=== PATIENT | male | born 1975 | race Caucasian/White ===

== ENCOUNTER 2022-05-03 06:27 | Day surgery (SDC) | payer OTHER, SELFPAY ==
[2022-03-12 10:33] VITALS: BMI 27.8
[2022-04-21 07:56] VITALS: BMI 28.9
--- NOTE | 2022-05-03 07:05 | WPDANESEPPF ---
Anes - Initial Pre Proc Eval Procedure: Operation Date: 05/03/22 08:30 Proposed Procedures p Screening Colonoscopy - Tom Durbin MD Date/Time: 05/03/22 07:05 Surgeon: Tom Durbin MD Pre Op Diagnosis: Neoplasm Screening Patient Data Age: 46 Gender: M Height: 1.85 m Weight: 99.5 kg Allergies Allergy/AdvReac Type Severity Reaction Status Date / Time iodine Allergy Mild Itching Verified 05/03/22 07:20 bupropion AdvReac bad Verified 05/03/22 07:20 nightmares Home Medications Medication Instructions Recorded Confirmed Type loratadine 10 mg tablet (Claritin) 10 mg PO DAILY 12/19/19 05/03/22 History sodium,potassium,mag sulfates 17.5 See Rx Instructions PO .COMPLEX 03/12/22 05/03/22 Rx gram-3.13 gram-1.6 gram oral soln #354 mL (Suprep Bowel Prep Kit) multivit with minerals-iron 18 1 tablet PO DAILY 04/21/22 05/03/22 History mg-folic ac 400 mcg-vit K 25 mcg tablet (Adults Multivitamin) vitamin B complex (B 1 tablet PO DAILY 04/21/22 05/03/22 History Complex-Vitamin B12 tablet) Patient hx anesthesia problems: none Family hx anesthesia problems: none Results Review: All pre-operative results and documents have been reviewed as part of the pre-operative evaluation. [facility] Past Medical History Medical History Chronic bilateral low back pain Vitamin B12 deficiency Surgical History Surgical History History of carpal tunnel release History of pilonidal cyst History of tonsillectomy Family History Family History Mother Family history of thyroid disease Hypertension Father Family history of schizophrenia Acute myocardial infarction Sibling Family history of migraine headaches Other Family history of cardiovascular disease Social History Social History Smoking packs per day: 1 Smoking cigarettes per day: 20.0 Years smoked: 25 Smoking pack-years: 25.00 Smoking status: Former smoker Tobacco type: cigarettes Second hand tobacco smoke exposure: No Smoking end date: 04/04/18 Alcohol intake: former Substance use: unknown Substance use type: does not use Living arrangements: with family Occupation/Education: occupation Gender identity (if verbalized by the patient): Male Spiritual care concerns: No Anes - Eval Final PreProcedure Day of Procedure 05/03/22 07:05 Patient weight: overweight Heart: regular rate and rhythm Lungs: clear to auscultation Airway: Mallampati scale class II Neurological: alert and oriented Last oral intake: >/= 8 hours ASA classification: II Emergent: no Anesthetic plan: proceed Anesthesia type and monitoring: general GIVS and standard monitoring Results Review: All pre-operative results and documents have been reviewed as part of the pre-operative evaluation. Informed Consent: The patient's anesthetic plan and its attendant risks and benefits were discussed with the patient/family/POA. Questions were solicited and answers provided to the satisfaction of the patient/family/POA.
[2022-05-03 07:15] VITALS: BP 118/80; PULSE 52; RESP 16; TEMP 36.4; O2SAT 100
[2022-05-03] MEDS: LACTATED RINGERS 1,000 ML 150 ML IV CONT (07:27)
--- NOTE | 2022-05-03 07:32 | PM.HPGS ---
History of Present Illness History of Present Illness Consent: Risks, benefits, and alternatives have been discussed and questions answered. Patient agrees to proceed with procedure. Chief complaint: Neoplasm Screening Narrative: Ross Wyman is a 46 year old male Presents for screening colonoscopy. Patient's current weight appetite and bowel movements are normal. Patient denies abdominal pain. He has had no bleeding. He has had irregular bowel habits in the past attributed to irritable bowel syndrome. Review of Systems Review of Systems: Reviews systems noncontributory. [facility] Past Medical History Medical History Chronic bilateral low back pain Vitamin B12 deficiency Surgical History Surgical History History of carpal tunnel release History of pilonidal cyst History of tonsillectomy Family History Family History Mother Family history of thyroid disease Hypertension Father Family history of schizophrenia Acute myocardial infarction Sibling Family history of migraine headaches Other Family history of cardiovascular disease Social History Social History Smoking packs per day: 1 Smoking cigarettes per day: 20.0 Years smoked: 25 Smoking pack-years: 25.00 Smoking status: Former smoker Tobacco type: cigarettes Second hand tobacco smoke exposure: No Smoking end date: 04/04/18 Alcohol intake: former Substance use: unknown Substance use type: does not use Living arrangements: with family Occupation/Education: occupation Gender identity (if verbalized by the patient): Male Spiritual care concerns: No Meds Home Medications and Allergies Home Medications Medication Instructions Recorded Confirmed Type loratadine 10 mg tablet (Claritin) 10 mg PO DAILY 12/19/19 05/03/22 History sodium,potassium,mag sulfates 17.5 See Rx Instructions PO .COMPLEX 03/12/22 05/03/22 Rx gram-3.13 gram-1.6 gram oral soln #354 mL (Suprep Bowel Prep Kit) multivit with minerals-iron 18 1 tablet PO DAILY 04/21/22 05/03/22 History mg-folic ac 400 mcg-vit K 25 mcg tablet (Adults Multivitamin) vitamin B complex (B 1 tablet PO DAILY 04/21/22 05/03/22 History Complex-Vitamin B12 tablet) Allergies Allergy/AdvReac Type Severity Reaction Status Date / Time iodine Allergy Mild Itching Verified 05/03/22 07:20 bupropion AdvReac bad Verified 05/03/22 07:20 nightmares Vital Signs Vital Signs - 24 hr 05/03/22 07:15 Temperature 97.5 F L Pulse Rate 52 L Respiratory Rate 16 Blood Pressure 118/80 Pulse Oximetry 100 Oxygen Delivery Room Air Exam Narrative: Physical exam reveals patient to be alert. Vital signs stable. HEENT exam is unremarkable. Patient is anicteric. Lungs are clear to auscultation and percussion. Heart is without murmur or extra sounds. Abdomen bowel sounds present soft nontender with no organomegaly. Digital external rectal exam is normal. Assessment and Plan Assessment and plan (1) Encounter for screening colonoscopy: Code(s): Z12.11 - Encounter for screening for malignant neoplasm of colon Status: Acute Assessment and Plan: Patient presents for screening colonoscopy. He appears to be at average risk for colon polyps. Further recommendations may be given after endoscopy.
[2022-05-03] MEDS: SIMETHICONE ORAL SUSPENSION 20 MG/0.3 ML 30 ML BOTTLE 0.6 ML IRRIGATION (08:48)
[2022-05-03 08:55] VITALS: BP 100/65; PULSE 54; RESP 18; O2SAT 97
[2022-05-03 09:05] VITALS: BP 101/65; PULSE 50; RESP 20; O2SAT 96
[2022-05-03 09:15] VITALS: BP 105/68; PULSE 51; RESP 20; O2SAT 98
--- NOTE | 2022-05-03 10:35 | WPDANESPN ---
Anes - Prog Note Post-Op Date/Time: 05/03/22 10:35 Cardiovascular status: normal Respiratory status: normal Airway patency: baseline Mental status: baseline Post-Op hydration status: normal Vital Signs: Last Vital Signs Temp 36.4 C L 05/03/22 07:15 Pulse 51 L 05/03/22 09:15 Resp 20 05/03/22 09:15 BP 105/68 05/03/22 09:15 Pulse Ox 98 05/03/22 09:15 O2 Del Method Room Air 05/03/22 09:15 Pain Score (VAS): 0 I/O: Intake & Output 05/02/22 05/03/22 05/03/22 23:59 07:59 15:59 Intake Total 550 Balance 550 Post-procedural complaints: none Patient Feedback: Patient satisfied with anesthetic care. Other Findings: Patient vital signs back to baseline. Patient denies nausea and vomiting. Patient's pain under control. Patient OK for discharge.
== END 2022-05-03 09:29 | disposition home or self-care (01) ==
PROVIDERS: PCP Family Medicine; Visit Provider Internal Medicine Gastroenterology
PROC: 0DJD8ZZ Inspection of Lower Intestinal Tract, Via Natural or Artificial Opening Endoscopic (ICD-10-PCS; CPT 45378; principal; 2022-05-03 08:30)
DX: Z12.11 Encounter for screening for malignant neoplasm of colon (principal)
CPT/HCPCS: 45378

== ENCOUNTER → 2022-06-02 12:13 | Outpatient (CLI) | payer OTHER, SELFPAY ==
--- NOTE | ~2022-06-02 | CT_ITS ---
Non-contrast CT scan of the Abdomen and Pelvis Clinical indication: Hematuria Technique: 2.5 mm axial scans were obtained through the abdomen and pelvis without intravenous or or al contrast. Dose reduction technique was used on this scan by utilizing automated exposure control a nd iterative reconstruction technique. The dose-length product (DLP) was 1212.54 mGy-cm. Findings: Images through the lung bases reveal no abnormalities. Punctate nonobstructing right renal stone present. No ureteral stone or hydronephrosis on either side . Scattered small hepatic cysts noted. The spleen, pancreas, gallbladder, and adrenals appear normal. There is no aortic aneurysm. There is no evidence of bowel obstruction. Images through the pelvis were performed. There is no evidence of ascites or lymphadenopathy. Urinary bladder unremarkable. Prostate gland and seminal vesicles are unremarkable. Impression: Punctate nonobstructing right renal stone. Reviewed, dictated and finalized at [facility]. ULATING NURSE Impression: Punctate nonobstructing right renal stone.
== END ==
PROVIDERS: PCP Family Medicine; Visit Provider Family Medicine
DX: R31.9 Hematuria, unspecified (principal); N20.0 Calculus of kidney
CPT/HCPCS: 74176

== ENCOUNTER 2023-04-20 08:41 | Emergency (ER) | payer OTHER, SELFPAY ==
--- NOTE | ~2023-04-20 | US_ITS ---
EXAMINATION: US soft tissue LE DATE: 04/20/2023 09:48 INDICATION: Mass at the medial upper left thigh TECHNIQUE: Multiple grayscale and Doppler ultrasound images of the region of concern at the medial le ft thigh were obtained. COMPARISON: None FINDINGS: There is a 13.3 x 7.2 x 2.9 cm lenticular mass in the subcutaneous fat which is slightly hyperechoic but with similar echotexture and internal septated architecture as the surrounding subcutaneous fat. No evident internal vascular flow on color Doppler. IMPRESSION: 1. 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 Reviewed, dictated and finalized at location A. [employer] IMPRESSION: 1. 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
[2023-04-20 08:50] VITALS: BP 133/91; PULSE 58; RESP 16; TEMP 36.4; O2SAT 99
--- NOTE | 2023-04-20 09:02 | ED.EXTPRO ---
HPI - Extremity Problem General Chief complaint: Extremity Problem,Nontraumatic Stated complaint: large lump on thigh Time Seen by Provider: 04/20/23 08:57 Source: patient Mode of arrival: ambulatory Limitations: no limitations History of Present Illness HPI Narrative: Fabricio is a 47-year-old male patient presenting to the clinic today with complaints of a large lump to his left medial upper thigh. He reports he 1st noticed this morning while he was in the shower. No known injury. No obvious redness. Nontender at this time. Related Data Home Medications Medication Instructions Recorded Confirmed loratadine 10 mg tablet (Claritin) 10 mg PO DAILY 12/19/19 04/01/23 multivit with minerals-iron 18 1 tablet PO DAILY 04/21/22 04/01/23 mg-folic ac 400 mcg-vit K 25 mcg tablet (Adults Multivitamin) vitamin B complex (B 1 tablet PO DAILY 04/21/22 04/01/23 Complex-Vitamin B12 tablet) Allergies Allergy/AdvReac Type Severity Reaction Status Date / Time iodine Allergy Mild Itching Verified 04/20/23 08:52 bupropion AdvReac bad Verified 04/20/23 08:52 nightmares Review of Systems Review of Systems: Pertinent positives per HPI. Patient denies any fever, chills, rash, headache, visual changes, dizziness, cough, shortness of breath, chest pain, palpitations, nausea, vomiting, diarrhea, constipation, abdominal pain, or any urinary issues. [facility] Past Medical History Medical History Chronic bilateral low back pain Frequent loose stools Hemorrhoids Vitamin B12 deficiency Surgical History Surgical History History of carpal tunnel release History of pilonidal cyst History of tonsillectomy Family History Family History Mother Family history of thyroid disease Hypertension Father Family history of schizophrenia Acute myocardial infarction Sibling Family history of migraine headaches Other Family history of cardiovascular disease Social History Social History Smoking packs per day: 1 Smoking cigarettes per day: 20.0 Years smoked: 25 Smoking pack-years: 25.00 Smoking status: Former smoker Tobacco type: cigarettes Second hand tobacco smoke exposure: No Smoking end date: 04/04/18 Alcohol intake: former Substance use: unknown Substance use type: does not use Living arrangements: with family Occupation/Education: occupation Gender identity (if verbalized by the patient): Male Spiritual care concerns: No Comments At the time of my signature, I reviewed and agree with the nursing past medical, surgical, social, and family history. There is no relevant family history pertinent to the patient complaint. Exam Narrative: General: Well-developed, well nourished, in no apparent distress Head: Normocephalic, atraumatic. Cardio: Regular rate and rhythm, s1 and s2 normal, no murmur appreciated. Resp: Clear to auscultation bilaterally, no rhonchi, rales, wheezing or rubs. Integumentary: [place], warm, and dry, nontender mass to the left medial upper thigh measuring approximately 3 x 5cm Course Course Emergency Course: Portions of this record may have been created with voice recognition software. Vital Signs Vital signs: Vital Signs Temperature 36.4 C 04/20/23 08:50 Pulse Rate 58 L 04/20/23 08:50 Respiratory Rate 16 04/20/23 08:50 Blood Pressure 133/91 H 04/20/23 08:50 Pulse Oximetry 99 04/20/23 08:50 Temperature 36.4 C 04/20/23 08:50 Pulse Rate 58 L 04/20/23 08:50 Respiratory Rate 16 04/20/23 08:50 Blood Pressure 133/91 H 04/20/23 08:50 Pulse Oximetry 99 04/20/23 08:50 Vital signs reviewed MDM - Extremity (Nontraumatic) MDM Narrative Medical decision making narrative: At the time of visit p
== END 2023-04-20 10:21 | disposition home or self-care (01) ==
PROVIDERS: Emergency Provider Nurse Practitioner Family; PCP Family Medicine
DX: D17.24 Benign lipomatous neoplasm of skin and subcutaneous tissue of left leg (principal); Z87.891 Personal history of nicotine dependence; M54.50 Low back pain, unspecified; G89.29 Other chronic pain
CPT/HCPCS: 76882; 99284

== ENCOUNTER 2023-06-03 14:38 | Outpatient (CLI) | payer OTHER, SELFPAY ==
--- NOTE | ~2023-06-03 | CT_ITS ---
EXAMINATION: CT abdomen pelvis wo con DATE: 06/03/2023 15:02 INDICATION: Right lower quadrant pain TECHNIQUE: Computed tomography (CT) of the abdomen and pelvis was performed without intravenous contr ast. The dose-length product (DLP) was 651.32 mGy-cm. Automated exposure control and iterative recons truction technique were employed. COMPARISON: 06/02/2022 FINDINGS: A stable 3 mm nodule of the left lower lobe likely reflects old granulomatous disease. The heart size is normal. There is mild bilateral gynecomastia. Cysts of the liver measure up to 6 cm in the right hepatic lobe. The spleen, pancreas, gallbladder, and adrenal glands are normal. There is a 1.6 cm cyst of the right kidney. A 2 mm nonobstructing stone is present in the right kidney lower eduardo e. The left kidney is unremarkable. No pathologically enlarged abdominal or pelvic lymph nodes are id entified. The appendix is normal. No free intraperitoneal gas or evidence of bowel obstruction. There is mild lumbar spondylosis. IMPRESSION: 1. No CT correlate for the patient's symptoms. Reviewed, dictated and finalized at location F. UNT SPECIALIST
== END 2023-06-03 14:39 | disposition home or self-care (01) ==
LOC: ANHIMG 14:40
PROVIDERS: PCP Family Medicine; Visit Provider Family Medicine
DX: R10.31 Right lower quadrant pain (principal); N20.0 Calculus of kidney
CPT/HCPCS: 74176

== ENCOUNTER 2023-08-12 10:44 | Outpatient (CLI) | payer OTHER, SELFPAY ==
--- NOTE | ~2023-08-12 | CT_ITS ---
CT of the Abdomen and Pelvis: Indication: Hematuria Technique: 2.5 mm axial scans were obtained through the abdomen and pelvis prior to and following in travenous administration of 130 cc of Omnipaque 350. Dose reduction technique was used on this scan b y utilizing automated exposure control and iterative reconstruction technique. The dose-length produc t (DLP) was 1980.01 mGy-cm. COMPARISON: 06/03/2023 Findings: Scans through the lung bases are unremarkable. Scattered small hepatic cysts are present. The spleen, pancreas, gallbladder, adrenals and left kidne y are within normal limits. Punctate nonobstructing right renal stone present. No evidence of aortic aneurysm. No lymphadenopathy. No bowel obstruction or bowel wall thickening. There is no evidence to suggest acute appendicitis. Images through the pelvis were performed. Urinary bladder unremarkable. No pelvic mass seen. No ascit es. Impression: Punctate nonobstructing right renal stone. Reviewed, dictated and finalized at [facility]. Impression: Punctate nonobstructing right renal stone.
--- NOTE | ~2023-08-12 | XR_ITS ---
EXAMINATION: XR abdomen/kub 1V DATE: 08/12/2023 11:25 INDICATION: Hematuria TECHNIQUE: A supine view of the abdomen on 2 radiographs was obtained. COMPARISON: CT abdomen pelvis dated 08/12/2023 FINDINGS: The punctate stone at the lower pole the right kidney is unable to be identified on the plain radiogr aphs likely due to its small size. No other evident urolithiasis. Normal bowel gas pattern with small amount of stool in the proximal colon and no dilated loops of gas-filled bowel to suggest obstructio n. IMPRESSION: 1. No evident urolithiasis. The punctate stone seen at the lower pole the right kidney on CT is likel y too small to be visible by plain radiographs. Reviewed, dictated and finalized at location A. IMPRESSION: 1. No evident urolithiasis. The punctate stone seen at the lower pole the right kidney on CT is likely too small to be visible by plain radiographs.
[2023-08-12 11:03] LABS: Estimated Glomerular Filt Rate > 60
== END 2023-08-12 10:45 ==
PROVIDERS: PCP Family Medicine; Visit Provider Urology
DX: R31.0 Gross hematuria (principal); N20.0 Calculus of kidney
CPT/HCPCS: 74018; 74178; Q9967